=== PATIENT | female | born 1990 | race Caucasian/White ===

== ENCOUNTER → 2017-03-07 | Outpatient (CLI) | payer BC ==
[~2017-03-07] VITALS: Wt 60.9 kg
[~2017-03-07] MED LIST: TRI-SPRINTEC T1 EACH PO
[2017-03-07 10:38] VITALS: BP 129/84
== END ==
LOC: AMSURD 09:28
DX: R07.89 Other chest pain (principal); I45.6 Pre-excitation syndrome

== ENCOUNTER → 2017-03-08 | Outpatient (CLI) | payer BC ==
[~2017-03-08] VITALS: Wt 60.9 kg
[2017-03-08 17:45] VITALS: BP 158/99
== END ==
LOC: AMSURD 17:31
DX: R07.89 Other chest pain (principal); I45.6 Pre-excitation syndrome

== ENCOUNTER → 2017-04-04 | Outpatient (CLI) | payer BC ==
[~2017-04-04] VITALS: Wt 60.9 kg
[2017-04-04 10:20] VITALS: BP 128/92
== END ==
LOC: AMSURD 10:17
DX: R07.89 Other chest pain (principal)

== ENCOUNTER → 2017-04-15 | Outpatient (CLI) | payer BC ==
[2017-04-04 10:20] VITALS: BP 128/92
== END ==
LOC: RAD 12:00
DX: R07.89 Other chest pain (principal); I34.0 Nonrheumatic mitral (valve) insufficiency; I35.1 Nonrheumatic aortic (valve) insufficiency